=== PATIENT | male | born 1985 | race Hispanic/Latino ===

== ENCOUNTER 2020-11-16 15:38 | Emergency (ER) | payer SELFPAY ==
[2020-11-16 16:38] VITALS: BP 151/110
--- NOTE | 2020-11-16 16:57 | Emergency Department Report ---
Chief Complaint: Extremity Problem,Nontraumatic Stated Complaint: RT SIDE HIP PAIN - HPI History of Present Illness: The patient was evaluated in the emergency department for symptoms described in the history of present illness. He/she was evaluated in the context of the global COVID-19 pandemic, which necessitated consideration that the patient might be at risk for infection with the virus that causes COVID-19. Institutional protocols and algorithms that pertain to the evaluation of patie nts at risk for COVID-19 are in a state of rapid change based on information released by regulatory bodies including the CDC and federal and state organizations. These policies and algorithms were followed during the patient's care in the emergency department. Please note that these policies, procedures and recommendations changed on a rapid basis. 35-year-old male presents to the emergency room for right hip strain that started right after Thanksgiving while having intercourse. Patient states he was seen by his primary care provider placed on naproxen and tramadol and Voltaren. Patient states he reinjured it while having intercourse around Melissa time. He states that he has had no recent accidents or falls. - Exam Vital Signs: Vital Signs 11/16/20 16:33 Temperature 97.8 F Pulse Rate 91 H Respiratory 20 Rate Blood Pressure 151/110 O2 Sat by Pulse 99 Oximetry Physical Exam: Alert and oriented x3 no acute distress nontoxic in appearance No accessory muscles use Right hip full range of motion mild tenderness to anterior groin area. No swelling noted MSE screening note: Focused history and physical exam performed. Due to findings the following was ordered: 35-year-old male presents to the emergency room for right hip strain that started right after Thanksgiving while having intercourse. Patient states he was seen by his primary care provider placed on naproxen and tramadol and Voltaren. Patient states he reinjured it while having intercourse around Melissa time. He states that he has had no recent accidents or falls. Discussed to take your medications at Dr. Cardenas prescribed to you. ED Disposition for MSE Disposition: MED SCREENING EXAM-LEFT Is pt being admited?: No Does the pt Need Aspirin: No Condition: Stable Instructions: Muscle Strain, [id number] Additional Instructions: follow up with your Primary Care provider. Continue with your pain medications that was prescribed by your doctor. Referrals: ANGELES CARDENAS MD [Staff Physician] - 3-5 Days Forms: Work/School Release Form(ED)
== END 2020-11-16 16:59 | disposition left against medical advice (07) ==
LOC: ED 15:38
DX: M25.551 Pain in right hip (principal); Z53.21 Procedure and treatment not carried out due to patient leaving prior to being seen by health care provider